=== PATIENT | male | born 1965 | race Hispanic/Latino ===

== ENCOUNTER 2018-05-18 15:11 | Emergency (ER) | payer OTHER ==
[2018-05-18 15:46] LABS: BASOPHILS % (AUTO) 1.1 % (0.0-5.0); HEMATOCRIT 43.9 % (42-54); LYMPHOCYTES % (AUTO) 36.8 % (21.0-51.0); MEAN CORPUSCULAR HEMOGLOBIN 31.7 pg (27.0-33.0); MEAN CORPUSCULAR HGB CONC 34.3 g/dL (32.0-36.0); MEAN CORPUSCULAR VOLUME 92.5 fL (79-99); MONOCYTES % (AUTO) 8.1 % (3.0-13.0); PLATELET COUNT (AUTO) 239 K/uL (130-400); RED BLOOD CELL COUNT(AUTO) 4.74 MIL/uL (4.50-6.20); WHITE BLOOD COUNT (AUTO) 6.2 K/uL (4.8-10.8)
[2018-05-18 15:56] LABS: CREATININE 1.4 mg/dL (0.5-1.5); POTASSIUM 3.8 mmol/L (3.5-5.1)
[2018-05-18 15:57] LABS: INR 0.93 (0.85-1.15); PARTIAL THROMBOPLASTIN TIME 28.6 SEC (26.3-35.5); PROTHROMBIN TIME 9.8 SEC (9.6-11.6)
[2018-05-18 16:01] LABS: BILIRUBIN,TOTAL 0.4 mg/dL (0.2-1.0); TOTAL PROTEIN, SERUM 8.3 g/dL (6.0-8.3)
[2018-05-18] MEDS ORDERED: PREDNISONE 20 MG TABLET ONE (16:23)
[2018-05-18] MEDS ORDERED: LISINOPRIL 5 MG TABLET ONE (16:41)
[2018-05-18] MEDS ORDERED: HYDRALAZINE HCL 25 MG TABLET ONE ×2 (16:41→17:53)
[2018-05-18] MEDS ORDERED: AMLODIPINE BESYLATE 5 MG TAB PO ONE (17:53)
== END 2018-05-18 19:05 | disposition home or self-care (01) ==
LOC: EDH 15:11
DX: G51.0 Bell's palsy (principal); I10 Essential (primary) hypertension
CPT/HCPCS: 36415; 70450; 80053; 82550; 84484; 85025; 85610; 85730; 93005